=== PATIENT | female | born 1955 | race Caucasian/White ===

== ENCOUNTER 2018-06-17 15:24 | Emergency (ER) | payer OTHER ==
[2018-06-17] MEDS: IBUPROFEN 600 MG TAB PO (16:52)
== END 2018-06-17 18:06 | disposition home or self-care (01) ==
LOC: FTE 18:06
DX: M25.561 Pain in right knee (principal); R40.2412 Glasgow coma scale score 13-15, at arrival to emergency department; I10 Essential (primary) hypertension
CPT/HCPCS: 73562; 99283-25

== ENCOUNTER 2018-07-01 16:31 | Emergency (ER) | payer OTHER ==
[2018-07-01 19:11] LABS: ADD MAN DIFF? NO
[2018-07-01 19:15] LABS: BASOPHILS % 0.7 % (0.0-2.0); EOSINOPHILS # 0.1 10^3/ul (0.0-0.5); EOSINOPHILS % 1.8 % (0.0-7.0); HEMOGLOBIN 12.2 g/dl (12.0-16.0); LYMPHOCYTES # 1.6 10^3/ul (0.8-2.9); LYMPHOCYTES % 27.2 % (15.0-51.0); MEAN CORPUSCULAR HGB CONC 32.1 g/dl (32.0-37.0); MEAN CORPUSCULAR VOLUME 93.4 fl (82.0-101.0); MEAN PLATELET VOLUME 10.1 fl (7.4-10.4); MONOCYTE # 0.4 10^3/ul (0.3-0.9); MONOCYTES % 6.3 % (0.0-11.0); NEUTROPHIL # 3.8 10^3/ul (1.6-7.5); NEUTROPHILS % 63.7 % (39.0-77.0); PLATELET COUNT 226 10^3/UL (140-415); RED BLOOD COUNT 4.07 10^6/ul (4.20-5.40); RED CELL DISTRIBUTION WIDTH 12.7 % (11.5-14.5)
[2018-07-01 19:33] LABS: ALANINE AMINOTRANSFERASE 26 IU/L (13-69); ALBUMIN 4.4 g/dl (3.3-4.9); ALBUMIN/GLOBULIN RATIO 1.46; ALKALINE PHOSPHATASE 89 IU/L (42-121); ANION GAP 8 (5-13); ASPARTATE AMINO TRANSFERASE 27 IU/L (15-46); BILIRUBIN,INDIRECT 0.5 mg/dl (0-1.1); BILIRUBIN,TOTAL 0.5 mg/dl (0.2-1.3); BLOOD UREA NITROGEN 17 mg/dl (7-20); CALCIUM 9.9 mg/dl (8.4-10.2); CARBON DIOXIDE 28 mmol/L (21-31); CHLORIDE 106 mmol/L (97-110); CREATININE 0.74 mg/dl (0.44-1.00); Estimated GFR > 60 mL/min (>60); GLUCOSE 107 mg/dl (70-220); LIPASE 179 U/L (23-300); POTASSIUM 3.9 mmol/L (3.5-5.1); SODIUM 142 mmol/L (135-144); TOTAL PROTEIN 7.4 g/dl (6.1-8.1)
== END 2018-07-01 19:58 | disposition home or self-care (01) ==
LOC: FTE 16:31
DX: R11.2 Nausea with vomiting, unspecified (principal); I10 Essential (primary) hypertension; T40.4X5A Adverse effect of other synthetic narcotics, initial encounter
CPT/HCPCS: 36415; 80053; 83690; 85025; 99283

== ENCOUNTER 2019-01-25 07:06 | Day surgery (SDC) | payer OTHER ==
[2019-01-25] MEDS ORDERED: METOCLOPRAMIDE 10 MG INJ IV (09:00)
[2019-01-25] MEDS ORDERED: HYDROmorphONE 1 MG/5 ML IV SYRINGE IV ×2 (09:00)
[2019-01-25] MEDS ORDERED: MEPERIDINE 25 MG INJ IV (09:00)
[2019-01-25] MEDS ORDERED: FENTAnyl 50 MCG/ML VIAL IV ×2 (09:00)
[2019-01-25] MEDS ORDERED: ALBUTEROL 0.083% (NEB) 2.5 MG/3 ML AMP HHN (09:00)
[2019-01-25] MEDS ORDERED: ONDANSETRON 4 MG INJ IV (09:00)
[2019-01-25] MEDS ORDERED: CEFAZOLIN 1 GM/50 ML (PMX) 50 ML IVPB (09:00)
[2019-01-25] MEDS ORDERED: DIPHENHYDRAMINE 50 MG INJ IV (09:00)
[2019-01-25] MEDS ORDERED: MIDAZOLAM 1 MG/ML 2 ML INJ (09:02)
[2019-01-25] MEDS ORDERED: FENTAnyl 50 MCG/ML VIAL (09:03)
[2019-01-25] MEDS ORDERED: CEFAZOLIN 1 GM INJ (09:17)
[2019-01-25] MEDS: LIDOCAINE 1% (MPF) 30 ML INJ (09:25)
[2019-01-25] MEDS: BUPIVACAINE 0.5% (SDV) 30 ML INJ (09:26)
[2019-01-25] MEDS: DEXAMETHASONE 4 MG/ML 1 ML INJ (09:26)
== END 2019-01-25 11:24 | disposition home or self-care (01) ==
LOC: SDS 07:06
DX: M21.622 Bunionette of left foot (principal)
CPT/HCPCS: 28308